=== PATIENT | male | born 1990 | race Caucasian/White ===

== ENCOUNTER 2019-10-25 11:55 | Emergency (ER) | payer BC, OTHER ==
--- NOTE | 2019-10-25 12:31 | ED ---
Adult Trauma - HPI Summary HPI Summary: Patient is a 29 y/o M presenting to the ED for a chief complaint of head injury after a fall. Patient is present with his daughter, , and brother. He states that he was helping his 2 y/o daughter go down the stairs when he took a misstep and fell about 12 steps. He fell and hit his head on a refrigerator. Patient reports being disoriented after the fall, but denies LOC. Currently, the patient is complaining or right hand, right wrist, and right elbow pain, headache, bump on the back of the head, neck pain, and pain on the bottom of the right foot that began before the fall. Patient states that the right foot pain worsens when bearing weight. He describes the neck pain as soreness. Patient denies chest pain, shortness of breath, numbness, paresthesia, or back pain. He denies any aggravating or alleviating factors. He was able to walk after the fall. Patient denies any PMHx, PSHx, or blood thinner use. Patient denies tobacco, alcohol, or drug use. Medications reviewed. Allergies noted. - History of Current Complaint Chief Complaint: EDTraumaMultiple Stated Complaint: MULT INJ FROM FALL Time Seen by Provider: 10/25/19 12:19 Hx Obtained From: Patient Mechanism of Injury: Fall Ambulatory at the Scene: No Loss of Consciousness: dazed - Disoriented after fall Onset/Duration: Started Minutes Ago, Traumatic, Still Present Onset of Pain: Immediate Onset Severity: Moderate Current Severity: Moderate Pain Intensity: 6 Pain Scale Used: 0-10 Numeric Location: Head, Neck, Back Character: Dull - Soreness Aggravating Factor(s): Nothing Alleviating Factor(s): Nothing Associated Signs & Symptoms: Negative: SOB, Chest Pain, Loss of Consciousness, Numbness/Weakness - Negative numbness or paresthesia - Allergy/Home Medications Allergies/Adverse Reactions: Allergies Allergy/AdvReac Type Severity Reaction Status Date / Time No Known Allergies Allergy Verified 10/25/19 12:50 PMH/Surg Hx/FS Hx/Imm Hx Previously Healthy: Yes Endocrine/Hematology History: Denies: Hx Diabetes Cardiovascular History: Denies: Hx Hypercholesterolemia, Hx Hypertension Respiratory History: Denies: Hx Asthma, Hx Chronic Obstructive Pulmonary Disease (COPD) Sensory History: Denies: Hx Legally Blind, Hx Deafness Opthamlomology History: Denies: Hx Legally Blind EENT History: Denies: Hx Deafness - Surgical History Surgical History: None Surgery Procedure, Year, and Place: None Infectious Disease History: No Infectious Disease History: Denies: History Other Infectious Disease, Traveled Outside the [place] in Last 30 Days - Family History Known Family History: Positive: Other - CVA Negative: Cardiac Disease, Hypertension, Diabetes - Social History Occupation: Employed Full-time Lives: With Family Alcohol Use: None Hx Substance Use: Yes Substance Use Type: Reports: Marijuana Hx Tobacco Use: Yes Smoking Status (MU): Heavy Every Day Tobacco Smoker Type: Cigarettes Amount Used/How Often: 1 PPW Review of Systems Negative: Chest Pain Negative: Shortness Of Breath Positive: Myalgia - Right hand, arm, elbow, bottom of right foot, neck pain; negative back pain Positive: Other - Positive bump on head Positive: Headache. Negative: Paresthesia, Numbness, Syncope All Other Systems Reviewed And Are Negative: Yes Physical Exam - Summary Physical Exam Summary: Constitutional: Well-developed, Well-nourished, Alert. (-) Distressed Skin: Warm, Dry HENT: Normocephalic; Atraumatic Eyes: Conjunctiva normal Neck: Musculoskeletal ROM normal neck. (-) JVD, (-) Stridor, (-) Tracheal deviation Cardio: Rhythm regular, rate normal, Heart sounds normal; Intact distal pulses; Radial pulses are 2+ and symmetric. (-) Murmur Pulmonary/Chest wall: Effort normal. (-) Respiratory distress, (-) Wheezes, (-) Rales Abd: Soft, (-) tenderness, (-) Distension, (-) Guarding, (-) Rebound Musculoskeletal: (-) Edema. Tenderness in the proximal dorsal aspect of the right hand, no snuffbox tenderness, right abrasion to the right elbow, tenderness in the right plantar fascia with no bony tenderness. Midline CVA tenderness. Lymph: (-) Cervical adenopathy Neuro: Alert, Oriented x3 Psych: Mood and affect Normal Triage Information Reviewed: Yes Vital Signs On Initial Exam: Initial Vitals Temp Pulse Resp BP Pulse Ox 98.2 F 73 18 115/91 97 10/25/19 11:59 10/25/19 11:59 10/25/19 11:59 10/25/19 11:59 10/25/19 11:59 Vital Signs Reviewed: Yes - Sarah Coma Scale Best Eye Response: 4 - Spontaneous Best Motor Response: 6 - Obeys Commands Best Verbal Response: 5 - Oriented Coma Scale Total: 15 Procedures - Sedation Patient Received Moderate/Deep Sedation with Procedure: No Diagnostics - Vital Signs Vital Signs Temp Pulse Resp BP Pulse Ox 10/25/19 11:59 98.2 F 73 18 115/91 97 - Laboratory Lab Statement: Any lab studies that have been ordered have been reviewed, and results considered in the medical decision making process. - Radiology Elbow Radiology Interpretation Completed By: Radiologist Summary of Radiographic Findings: Elbow X-ray IMPRESSION: NO EVIDENCE FOR FRACTURE. Reviewed by Dr. Sethi. Hand Radiology Interpretation Completed By: Radiologist Summary of Radiographic Findings: Hand X-ray IMPRESSION: No fracture of the right hand is noted. Reviewed by Dr. Sethi. Wrist Radiology Interpretation Completed By: Radiologist Summary of Radiographic Findings: Wrist X-ray IMPRESSION: NO EVIDENCE FOR FRACTURE. IF THE PATIENT'S SYMPTOMS PERSIST RECOMMEND FOLLOW-UP IMAGING. Reviewed by Dr. Sethi. - CT Brain CT CT Interpretation Completed By: Radiologist Summary of CT Findings: Brain CT IMPRESSION: No acute intracranial abnormality identified. Reviewed by Dr. Sethi. Cervical Spine CT CT Interpretation Completed By: Radiologist Summary of CT Findings: Cervical Spine CT IMPRESSION: No fracture of the cervical spine however there is is limited evaluation of C6-T1 due to body habitus. Reviewed by Dr. Sethi. Re-Evaluation - Re-Evaluation First Eval Re-Evaluation Time: 13:25 Change: Improved Comment: At 13:25, clear to C-spine, no tenderness. Adult Trauma Course/Dx - Course Course Of Treatment: Patient is here after falling down 12 steps. Patient did hit his head and distended his fridge with his head. Patient had no loss of consciousness. Patient had negative CT head and cervical spine. Patient had no abdominal or thoracic trauma. Patient had a negative x-ray of his extremity injury. - Diagnoses Provider Diagnoses: Fall, Hand pain, Closed head injury Discharge ED - Sign-Out/Discharge Documenting (check all that apply): Patient Departure - Discharge - Discharge Plan Condition: Stable Disposition: HOME Patient Education Materials: Head Injury (ED) Forms: *Work Release Referrals: Anne-Marie Mccain NP [Primary Care Provider] - Additional Instructions: Take ibuprofen 600 mg every 6 hours for pain. PLEASE RETURN TO EMERGENCY DEPARTMENT FOR ANY NEW OR WORSENING SYMPTOMS. Please follow up with your primary care physician. Please make all follow-ups in 1-3 days unless I advise you otherwise. - Billing Disposition and Condition Condition: STABLE Disposition: Home - Attestation Statements Document Initiated by Eloy: Yes Documenting Scribe: Lucy López Provider For Whom Scribe is Documenting (Include Credential): Tam Sethi MD Scribe Attestation: Lucy Quispe, scribed for Tam Sethi MD on 10/25/19 at 2130. Scribe Documentation Reviewed: Yes Provider Attestation: The documentation as recorded by the Lucy syed accurately reflects the service I personally performed and the decisions made by , Tam Sethi MD Status of Scribe Document: Viewed
[2019-10-25] MEDS ORDERED: Ibuprofen TAB* 600 MG PO ONE (13:29)
[2019-10-25 14:39] VITALS: BP 110/49
== END 2019-10-25 14:44 | disposition home or self-care (01) ==
LOC: ED 11:55
DX: S09.90XA Unspecified injury of head, initial encounter (principal); M79.641 Pain in right hand; W10.9XXA Fall (on) (from) unspecified stairs and steps, initial encounter; Y92.009 Unspecified place in unspecified non-institutional (private) residence as the place of occurrence of the external cause; F17.210 Nicotine dependence, cigarettes, uncomplicated
CPT/HCPCS: 70450; 72125; 99282; A9270-GY